=== PATIENT | female | born 1945 | race Caucasian/White ===

== ENCOUNTER → 2017-04-01 | Outpatient (CLI) | payer MEDICARE, OTHER ==
[~2017-04-01] MED LIST: ALPR-475 PO; ASPI-496 PO; ATOR20TA9 PO; CHOL2000 PO; OMNIPAQUE 350 MG/ML, 100ML BOTTLE ONE
== END | disposition home or self-care (01) ==
LOC: CFH 14:16
PROVIDERS: ATTEND Internal Medicine
DX: R10.30 Lower abdominal pain, unspecified (principal)
CPT/HCPCS: 74177; Q9967

== ENCOUNTER 2019-12-28 10:58 | Outpatient (CLI) | payer MEDICARE, OTHER ==
[~2019-12-28 10:58] MED LIST changes: -ALPR-475 PO; +ALPR0.5T7 PO; +ATOR20TA37 PO; -ATOR20TA9 PO; -OMNIPAQUE 350 MG/ML, 100ML BOTTLE ONE
== END 2019-12-28 23:59 | disposition home or self-care (01) ==
LOC: CFH 10:58
PROVIDERS: ATTEND Internal Medicine
DX: M81.0 Age-related osteoporosis without current pathological fracture (principal)
CPT/HCPCS: 77080